=== PATIENT | male | born 1965 | race Two or more races ===

== ENCOUNTER 2023-07-22 17:08 | Inpatient (IN) | payer OTHER ==
[2023-07-22 20:10] VITALS: RESP 16; BMI 19.8
[2023-07-22] MEDS ORDERED: MAG HYDROX/AL HYDROX/SIMETH 30 ML UNIT-DOSE CUP PO PRN (23:24)
[2023-07-22] MEDS ORDERED: MAGNESIUM HYDROX 2400MG/30ML ORAL SUSPENSION 30 ML CUP PO PRN (23:24)
[2023-07-22] MEDS ORDERED: BENZOCAINE/MENTHOL (CHLORASEPTIC ) LOZENGE MM PRN (23:24)
[2023-07-22] MEDS ORDERED: NICOTINE POLACRILEX 2 MG GUM BUC PRN (23:24)
[2023-07-22] MEDS ORDERED: BENZONATATE 200 MG CAPSULE PO PRN (23:24)
[2023-07-22] MEDS ORDERED: NALOXONE HCL 0.4 MG/ML VIAL IM PRN (23:24)
[2023-07-22] MEDS ORDERED: LOPERAMIDE HCL 2 MG CAPSULE PO PRN (23:24)
[2023-07-22] MEDS ORDERED: hydrOXYzine PAMOATE 25 MG CAPSULE (FP) PO PRN (23:24)
[2023-07-22] MEDS ORDERED: POLYETHYLENE GLYCOL (HEALTHYLAX) 3350 17 GM PACKET PO PRN (23:24)
[2023-07-22] MEDS ORDERED: IBUPROFEN 600 MG TABLET (FP) PO PRN (23:24)
[2023-07-22] MEDS ORDERED: ACETAMINOPHEN 325 MG TABLET (FP) PO PRN (23:24)
[2023-07-22] MEDS ORDERED: IBUPROFEN 400 MG TABLET (FP) PO PRN (23:24)
[2023-07-22] MEDS ORDERED: NALOXONE HCL (KLOXXADO) 8 MG SPRAY NS PRN (23:24)
[2023-07-22] MEDS ORDERED: guaiFENesin 600 MG TABLET.ER (FP) PO PRN (23:24)
[2023-07-23] MEDS: MELATONIN 5 MG TABLETS PO SCH ×2 (00:05→21:17)
[2023-07-23] MEDS ORDERED: hydrOXYzine PAMOATE 25 MG CAPSULE (FP) PO ONE (01:39)
[2023-07-23] MEDS ORDERED: MELATONIN 5 MG TABLETS ONE (01:39)
[2023-07-23] MEDS ORDERED: methaDONE HCL 10 MG TABLET PO SCH (07:30)
[2023-07-23] MEDS: TAMSULOSIN HCL 0.4 MG CAP PO SCH (09:23)
[2023-07-23] MEDS: GABAPENTIN 400 MG CAPSULE PO SCH ×2 (09:24→21:17)
[2023-07-23] MEDS: levETIRAcetam 500 MG TABLET (FP) PO SCH ×2 (09:24→21:17)
[2023-07-23] MEDS: PRENATAL VITAMINS W/ FOLIC ACID TABLET (FP) PO SCH (09:24)
[2023-07-23] MEDS: NICOTINE 21 MG/24 HOURS TOPICAL PATCH TD SCH (09:25)
[2023-07-23 11:33] LABS: HEMATOCRIT 35.9 % (35.4-49); HEMOGLOBIN 12.2 GM/dL (11.7-16.9); MCH 31.4 pg (25.7-33.7); MCHC 33.9 g/dl (32.0-35.9); MEAN CELL VOLUME 92.8 fl (80-96); MEAN PLT VOLUME 8.1 fl (7.5-11.1); PLATELET COUNT 127 10^3/uL (134-434); RBC 3.87 M/mm3 (4.00-5.60); WHITE BLOOD COUNT 5.5 K/mm3 (4.0-10.0)
[2023-07-23 11:39] LABS: CHLORIDE 110 mmol/L (98-107); POTASSIUM 3.5 mmol/L (3.5-5.1); SODIUM 143 mmol/L (136-145)
[2023-07-23 11:42] LABS: ALBUMIN 2.8 g/dl (3.4-5.0); ANION GAP 2 mmol/L (4-13); BLOOD UREA NITROGEN 17.7 mg/dL (7-18); CALCIUM 8.8 mg/dL (8.5-10.1); CO2 31 mmol/L (21-32); GLUCOSE,RANDOM 96 mg/dL (74-106)
[2023-07-23 11:45] LABS: CREATININE 0.7 mg/dL (0.55-1.3)
[2023-07-23 11:46] LABS: SGOT/AST 67 U/L (15-37)
[2023-07-23 11:47] LABS: BILIRUBIN,TOTAL 0.2 mg/dL (0.2-1); TOT PROT 6.6 g/dl (6.4-8.2)
[2023-07-23 12:41] LABS: HIV INTERPRETATION NEGATIVE (NEGATIVE)
[2023-07-23 15:23] LABS: SGPT/ALT 118 U/L (13-61)
[2023-07-23 15:26] LABS: ALK PHOS 61 U/L (45-117)
[2023-07-23] MEDS: THIAMINE HCL 100 MG TABLET (FP) PO SCH (21:17)
[2023-07-24] MEDS ORDERED: LORazepam 4 MG/1 ML VIAL IM ONE (09:55)
[2023-07-24] MEDS ORDERED: LORazepam 2 MG/ML SDV VIAL IM ONE (09:59)
[2023-07-24] MEDS: GABAPENTIN 400 MG CAPSULE PO SCH ×2 (10:56→22:53)
[2023-07-24] MEDS: levETIRAcetam 500 MG TABLET (FP) PO SCH ×2 (10:56→22:53)
[2023-07-24] MEDS: NICOTINE 21 MG/24 HOURS TOPICAL PATCH TD SCH (10:56)
[2023-07-24] MEDS: TAMSULOSIN HCL 0.4 MG CAP PO SCH (10:56)
[2023-07-24] MEDS: PRENATAL VITAMINS W/ FOLIC ACID TABLET (FP) PO SCH (10:57)
[2023-07-24 14:27] VITALS: BP 109/68; PULSE 73; TEMP 98.3
[2023-07-24] MEDS: MELATONIN 5 MG TABLETS PO SCH (22:53)
[2023-07-24] MEDS: THIAMINE HCL 100 MG TABLET (FP) PO SCH (22:54)
== END 2023-07-24 23:25 | disposition short-term general hospital (02) | DRG 772 ==
LOC: YASAS 17:08 → Y3E 07-23 01:46
PROVIDERS: ADMIT Allergy & Immunology; ATTEND Psychiatry & Neurology Pain Medicine
PROC: HZ42ZZZ Group Counseling for Substance Abuse Treatment, Cognitive-Behavioral (ICD-10-PCS; principal; 2023-07-23)
DX: F11.20 Opioid dependence, uncomplicated (principal); F14.20 Cocaine dependence, uncomplicated; F16.20 Hallucinogen dependence, uncomplicated; F17.210 Nicotine dependence, cigarettes, uncomplicated; F20.9 Schizophrenia, unspecified; F32.A Depression, unspecified; F19.282 Other psychoactive substance dependence with psychoactive substance-induced sleep disorder; F19.24 Other psychoactive substance dependence with psychoactive substance-induced mood disorder; G40.909 Epilepsy, unspecified, not intractable, without status epilepticus; C64.9 Malignant neoplasm of unspecified kidney, except renal pelvis; N40.0 Benign prostatic hyperplasia without lower urinary tract symptoms; B18.2 Chronic viral hepatitis C; Z86.11 Personal history of tuberculosis; Z88.0 Allergy status to penicillin; Z88.2 Allergy status to sulfonamides; Z59.00 Homelessness unspecified
CPT/HCPCS: 36415; 71046-TC-FY; 80053; 80307; 82962; 85027; 86780; 87389; 87635; 87811; 93005; 93010

== ENCOUNTER 2023-07-24 10:38 | Inpatient (IN) | payer OTHER ==
[2023-07-24 12:45] LABS: BASO % 0.4 % (0-2.0); EOS % 4.2 % (0-4.5); HEMATOCRIT 36.2 % (35.4-49); HEMOGLOBIN 12.2 GM/dL (11.7-16.9); LYMPH % 26.2 % (8-40); MCH 31.3 pg (25.7-33.7); MCHC 33.7 g/dl (32.0-35.9); MEAN CELL VOLUME 92.9 fl (80-96); MEAN PLT VOLUME 7.4 fl (7.5-11.1); MONO % 11.5 % (3.8-10.2); NEUT % 57.7 % (42.8-82.8); PLATELET COUNT 134 10^3/uL (134-434); RDW 14.3 % (11.9-15.9); WHITE BLOOD COUNT 4.6 K/mm3 (4.0-10.0)
[2023-07-24 12:52] LABS: INR 1.1 (0.83-1.09); PROTHROMBIN TIME (PATIENT) 12.7 SEC (9.7-13.0)
[2023-07-24 12:55] LABS: ACTIVATED PTT 29.3 SECONDS (25.2-36.5)
[2023-07-24] MEDS ORDERED: levETIRAcetam 500 MG/5 ML INJECTION VIAL IVPB ONE (13:00)
[2023-07-24] MEDS: levETIRAcetam 500 MG/5 ML INJECTION VIAL IVPB ONE (13:08)
[2023-07-24 13:09] LABS: POTASSIUM 3.9 mmol/L (3.5-5.1)
[2023-07-24 13:12] LABS: ALBUMIN 2.9 g/dl (3.4-5.0); BLOOD UREA NITROGEN 15.5 mg/dL (7-18)
[2023-07-24 13:15] LABS: CREATININE 0.6 mg/dL (0.55-1.3)
[2023-07-24 13:17] LABS: BILIRUBIN,TOTAL 0.3 mg/dL (0.2-1); TOT PROT 6.9 g/dl (6.4-8.2)
[2023-07-24 14:40] LABS: PH,URINE 7.5 (5.0-8.0); URINE APPEARANCE CLEAR; URINE BILIRUBIN NEGATIVE (NEGATIVE); URINE COLOR YELLOW; URINE GLUCOSE (UA) NEGATIVE (NEGATIVE); URINE KETONE NEGATIVE (NEGATIVE); URINE LEUK ESTERASE NEGATIVE (NEGATIVE); URINE NITRITE NEGATIVE (NEGATIVE); URINE PROTEIN NEGATIVE (NEGATIVE); URINE UROBILINOGEN 0.2 mg/dL (0.2-1.0)
[2023-07-24 15:00] LABS: PHENCYCLIDINE,URINE NEGATIVE (NEGATIVE); URINE BENZODIAZEPINES NEGATIVE (NEGATIVE)
[2023-07-24 15:01] LABS: OPIATES, URI NEGATIVE (NEGATIVE); URINE BARBITURATES NEGATIVE (NEGATIVE)
[2023-07-24 15:15] LABS: COCAINE, UR POSITIVE (NEGATIVE); METHADONE, UR POSITIVE (NEGATIVE); URINE AMPHETAMINES NEGATIVE (NEGATIVE)
[2023-07-24] MEDS ORDERED: NICOTINE 21 MG/24 HOURS TOPICAL PATCH ONE (18:37)
[2023-07-24] MEDS: NICOTINE 21 MG/24 HOURS TOPICAL PATCH TD SCH (18:41)
[2023-07-24] MEDS ORDERED: hydrOXYzine PAMOATE 50 MG CAPSULE (FP) ONE (21:24)
[2023-07-24] MEDS ORDERED: levETIRAcetam 500 MG TABLET (FP) PO ONE (21:24)
[2023-07-24] MEDS ORDERED: clonazePAM 2 MG TABLET ONE (21:25)
[2023-07-24] MEDS ORDERED: GABAPENTIN 400 MG CAPSULE ONE (21:25)
[2023-07-24] MEDS: GABAPENTIN 400 MG CAPSULE PO SCH (21:29)
[2023-07-24] MEDS: levETIRAcetam 500 MG TABLET (FP) PO SCH (21:29)
[2023-07-24] MEDS: CLONAZEPAM PO SCH (21:29)
[2023-07-24] MEDS: hydrOXYzine PAMOATE 50 MG CAPSULE (FP) PO SCH (21:30)
[2023-07-25] MEDS ORDERED: methaDONE HCL 10 MG TABLET PO SCH (10:00)
[2023-07-25 10:05] LABS: BASO % 0.3 % (0-2.0); EOS % 2.5 % (0-4.5); HEMATOCRIT 38.9 % (35.4-49); LYMPH % 21.4 % (8-40); MCH 30.8 pg (25.7-33.7); MCHC 33.4 g/dl (32.0-35.9); MEAN CELL VOLUME 92.2 fl (80-96); MEAN PLT VOLUME 7.5 fl (7.5-11.1); MONO % 10.3 % (3.8-10.2); NEUT % 65.5 % (42.8-82.8); PLATELET COUNT 145 10^3/uL (134-434); RBC 4.22 M/mm3 (4.00-5.60); RDW 13.6 % (11.9-15.9); WHITE BLOOD COUNT 5.1 K/mm3 (4.0-10.0)
[2023-07-25 10:30] LABS: POTASSIUM 3.8 mmol/L (3.5-5.1)
[2023-07-25 10:41] LABS: BLOOD UREA NITROGEN 15.5 mg/dL (7-18)
[2023-07-25 10:42] LABS: PHOSPHOROUS 3.4 mg/dL (2.5-4.9)
[2023-07-25] MEDS ORDERED: levETIRAcetam 250 MG TABLET PO ONE (10:42)
[2023-07-25 10:43] LABS: CREATININE 0.6 mg/dL (0.55-1.3)
[2023-07-25 10:44] LABS: BILIRUBIN,TOTAL 0.4 mg/dL (0.2-1); TOT PROT 7.1 g/dl (6.4-8.2)
[2023-07-25] MEDS: clonazePAM 2 MG TABLET PO SCH (10:49)
[2023-07-25] MEDS: ENOXAPARIN NA (PORCINE) 40 MG/0.4 ML DISP.SYRIN SQ SCH (10:49)
[2023-07-25] MEDS ORDERED: hydrOXYzine PAMOATE 25 MG CAPSULE (FP) PO ONE (22:08)
[2023-07-25] MEDS: ONDANSETRON 4 MG/2 ML VIAL IVPUSH PRN (22:14)
[2023-07-25] MEDS: hydrOXYzine PAMOATE 25 MG CAPSULE (FP) PO SCH (22:44)
[2023-07-25] MEDS: CARBIDOPA/LEVODOPA 25/100 TABLET (FP) PO SCH (22:45)
[2023-07-26 09:42] LABS: BASO % 0.3 % (0-2.0); EOS % 1.8 % (0-4.5); HEMATOCRIT 42.6 % (35.4-49); HEMOGLOBIN 14.4 GM/dL (11.7-16.9); LYMPH % 22.9 % (8-40); MCH 31.5 pg (25.7-33.7); MCHC 33.9 g/dl (32.0-35.9); MEAN CELL VOLUME 92.9 fl (80-96); MEAN PLT VOLUME 7.6 fl (7.5-11.1); MONO % 8.5 % (3.8-10.2); NEUT % 66.5 % (42.8-82.8); PLATELET COUNT 186 10^3/uL (134-434); RBC 4.58 M/mm3 (4.00-5.60); WHITE BLOOD COUNT 5.8 K/mm3 (4.0-10.0)
[2023-07-26 10:01] LABS: ALBUMIN 3.2 g/dl (3.4-5.0); BLOOD UREA NITROGEN 15.9 mg/dL (7-18); CALCIUM 9.5 mg/dL (8.5-10.1); MAGNESIUM 2.2 mg/dL (1.8-2.4)
[2023-07-26 10:03] LABS: POTASSIUM 4.5 mmol/L (3.5-5.1)
[2023-07-26 10:04] LABS: CREATININE 0.7 mg/dL (0.55-1.3)
[2023-07-26 10:06] LABS: BILIRUBIN,TOTAL 0.4 mg/dL (0.2-1); TOT PROT 7.9 g/dl (6.4-8.2)
[2023-07-27 09:55] LABS: BASO % 0.3 % (0-2.0); EOS % 3.9 % (0-4.5); HEMOGLOBIN 14.2 GM/dL (11.7-16.9); LYMPH % 29.3 % (8-40); MCH 31.5 pg (25.7-33.7); MCHC 34.6 g/dl (32.0-35.9); MEAN CELL VOLUME 91.1 fl (80-96); MEAN PLT VOLUME 7.7 fl (7.5-11.1); MONO % 12.2 % (3.8-10.2); NEUT % 54.3 % (42.8-82.8); PLATELET COUNT 195 10^3/uL (134-434); RDW 13.8 % (11.9-15.9); WHITE BLOOD COUNT 5.1 K/mm3 (4.0-10.0)
[2023-07-27 09:58] LABS: POTASSIUM 4.4 mmol/L (3.5-5.1)
[2023-07-27 10:10] LABS: CALCIUM 9.1 mg/dL (8.5-10.1)
[2023-07-27 10:11] LABS: BLOOD UREA NITROGEN 20.1 mg/dL (7-18); MAGNESIUM 2.1 mg/dL (1.8-2.4)
[2023-07-27 10:14] LABS: CREATININE 0.8 mg/dL (0.55-1.3)
[2023-07-27 10:15] LABS: BILIRUBIN,TOTAL 0.4 mg/dL (0.2-1); TOT PROT 7.5 g/dl (6.4-8.2)
[2023-07-27] MEDS: SODIUM CHLORIDE 500 ML IV STA (12:55)
[2023-07-27] MEDS: SODIUM CHLORIDE 1,000 ML IV SCH (15:53)
[2023-07-27] MEDS: IBUPROFEN 400 MG TABLET (FP) PO ONE (20:19)
[2023-07-27] MEDS: GABAPENTIN 100 MG CAPSULE PO SCH (22:03)
[2023-07-27] MEDS: LORazepam 2 MG/ML SDV VIAL IVPUSH PRN (23:41)
[2023-07-28] MEDS ORDERED: VALPROATE SODIUM 500 MG/5 ML VIAL IVPB SCH (00:15)
[2023-07-28] MEDS: DIVALPROEX SODIUM 500 MG TABLET E.C. PO SCH (00:21)
[2023-07-28] MEDS: VALPROATE SODIUM INJECTION 250 MG in SODIUM CHLORIDE 100 ML IVPB SCH ×2 (00:34→14:18)
[2023-07-28 08:46] LABS: BASO % 0.4 % (0-2.0); EOS % 4.1 % (0-4.5); HEMATOCRIT 37.9 % (35.4-49); HEMOGLOBIN 13.1 GM/dL (11.7-16.9); LYMPH % 31.2 % (8-40); MCH 31.7 pg (25.7-33.7); MCHC 34.7 g/dl (32.0-35.9); MEAN CELL VOLUME 91.4 fl (80-96); MEAN PLT VOLUME 7.8 fl (7.5-11.1); MONO % 13.8 % (3.8-10.2); NEUT % 50.5 % (42.8-82.8); PLATELET COUNT 171 10^3/uL (134-434); RBC 4.14 M/mm3 (4.00-5.60); WHITE BLOOD COUNT 4.6 K/mm3 (4.0-10.0)
[2023-07-28 09:03] LABS: POTASSIUM 4.2 mmol/L (3.5-5.1)
[2023-07-28 09:08] LABS: CALCIUM 8.9 mg/dL (8.5-10.1)
[2023-07-28 09:09] LABS: ALBUMIN 2.8 g/dl (3.4-5.0); BLOOD UREA NITROGEN 19.9 mg/dL (7-18); MAGNESIUM 1.9 mg/dL (1.8-2.4)
[2023-07-28 09:12] LABS: CREATININE 0.8 mg/dL (0.55-1.3)
[2023-07-28 09:13] LABS: BILIRUBIN,TOTAL 0.3 mg/dL (0.2-1); TOT PROT 6.4 g/dl (6.4-8.2)
[2023-07-28] MEDS ORDERED: ONDANSETRON 4 MG/2 ML VIAL IVPUSH PRN (10:17)
[2023-07-28] MEDS: SODIUM CHLORIDE 1,000 ML IV SCH (14:16)
[2023-07-28] MEDS: CARBIDOPA/LEVODOPA 25/100 TABLET (FP) PO SCH (14:16)
[2023-07-28] MEDS: GABAPENTIN 100 MG CAPSULE PO SCH (21:42)
[2023-07-28] MEDS: hydrOXYzine PAMOATE 25 MG CAPSULE (FP) PO SCH (21:43)
[2023-07-28] MEDS: levETIRAcetam 500 MG TABLET (FP) PO SCH (21:44)
[2023-07-29] MEDS: ENOXAPARIN NA (PORCINE) 40 MG/0.4 ML DISP.SYRIN SQ SCH (10:11)
[2023-07-29] MEDS: NICOTINE 21 MG/24 HOURS TOPICAL PATCH TD SCH (10:12)
[2023-07-29] MEDS: ACETAMINOPHEN 1000 MG/100 ML BAG IVPB ONE (21:39)
[2023-07-31 09:09] LABS: BASO % 0.4 % (0-2.0); EOS % 5.5 % (0-4.5); HEMATOCRIT 42.3 % (35.4-49); HEMOGLOBIN 14.3 GM/dL (11.7-16.9); LYMPH % 28.5 % (8-40); MCH 31.3 pg (25.7-33.7); MCHC 33.8 g/dl (32.0-35.9); MEAN CELL VOLUME 92.7 fl (80-96); MONO % 14.7 % (3.8-10.2); NEUT % 50.9 % (42.8-82.8); PLATELET COUNT 195 10^3/uL (134-434); RBC 4.56 M/mm3 (4.00-5.60); WHITE BLOOD COUNT 5.9 K/mm3 (4.0-10.0)
[2023-07-31 09:19] LABS: POTASSIUM 4.5 mmol/L (3.5-5.1)
[2023-07-31 09:44] LABS: CALCIUM 9.6 mg/dL (8.5-10.1)
[2023-07-31 09:45] LABS: BLOOD UREA NITROGEN 20.5 mg/dL (7-18); MAGNESIUM 2.2 mg/dL (1.8-2.4)
[2023-07-31 09:48] LABS: CREATININE 0.8 mg/dL (0.55-1.3)
[2023-07-31 09:50] LABS: BILIRUBIN,TOTAL 0.6 mg/dL (0.2-1)
[2023-07-31 09:55] LABS: ALBUMIN 3.4 g/dl (3.4-5.0)
[2023-07-31] MEDS: MECLIZINE HCL 12.5 MG TABLET PO SCH (14:14)
[2023-07-31] MEDS: DIVALPROEX SODIUM 500 MG TABLET E.C. PO ONE (14:19)
[2023-07-31] MEDS: DIVALPROEX SODIUM 500 MG TABLET E.C. PO SCH (21:50)
[2023-08-01] MEDS: LORazepam 2 MG/ML SDV VIAL IVPUSH PRN (00:21)
[2023-08-01] MEDS ORDERED: VALPROATE SODIUM 500 MG/5 ML VIAL IVPB SCH ×2 (00:45→09:30)
[2023-08-01] MEDS: VALPROATE SODIUM INJECTION 500 MG in SODIUM CHLORIDE 100 ML IVPB ONE (03:10)
[2023-08-01 09:09] LABS: BASO % 0.4 % (0-2.0); EOS % 5.6 % (0-4.5); HEMATOCRIT 41.7 % (35.4-49); LYMPH % 30.6 % (8-40); MCHC 33.7 g/dl (32.0-35.9); MEAN CELL VOLUME 92.2 fl (80-96); MEAN PLT VOLUME 8.1 fl (7.5-11.1); MONO % 13.3 % (3.8-10.2); NEUT % 50.1 % (42.8-82.8); PLATELET COUNT 184 10^3/uL (134-434); RBC 4.52 M/mm3 (4.00-5.60); RDW 14.2 % (11.9-15.9); WHITE BLOOD COUNT 5.6 K/mm3 (4.0-10.0)
[2023-08-01 09:26] LABS: POTASSIUM 4.7 mmol/L (3.5-5.1)
[2023-08-01 09:32] LABS: ALBUMIN 3.1 g/dl (3.4-5.0); BLOOD UREA NITROGEN 25.4 mg/dL (7-18); CALCIUM 9.1 mg/dL (8.5-10.1); MAGNESIUM 1.9 mg/dL (1.8-2.4)
[2023-08-01 09:35] LABS: CREATININE 0.8 mg/dL (0.55-1.3)
[2023-08-01 09:36] LABS: BILIRUBIN,TOTAL 0.4 mg/dL (0.2-1); TOT PROT 7.6 g/dl (6.4-8.2)
[2023-08-01] MEDS: VALPROATE SODIUM INJECTION 375 MG in SODIUM CHLORIDE 100 ML IVPB SCH (10:12)
[2023-08-01] MEDS: VALPROATE SODIUM INJECTION 250 MG in SODIUM CHLORIDE 100 ML IVPB SCH (10:37)
[2023-08-01] MEDS: SODIUM CHLORIDE 1,000 ML IV STA (10:39)
[2023-08-01] MEDS: SODIUM CHLORIDE 500 ML IV STA (14:46)
[2023-08-01] MEDS ORDERED: LORazepam 2 MG/ML SDV VIAL IVPUSH PRN (16:31)
[2023-08-01] MEDS ORDERED: ONDANSETRON 4 MG/2 ML VIAL IVPUSH PRN (16:31)
[2023-08-01] MEDS: CARBIDOPA/LEVODOPA 25/100 TABLET (FP) PO SCH (21:25)
[2023-08-01] MEDS: levETIRAcetam 500 MG TABLET (FP) PO SCH (21:25)
[2023-08-01] MEDS: hydrOXYzine PAMOATE 25 MG CAPSULE (FP) PO SCH (21:25)
[2023-08-01] MEDS: GABAPENTIN 100 MG CAPSULE PO SCH (21:25)
[2023-08-02 07:03] LABS: BASO % 0.5 % (0-2.0); EOS % 5.5 % (0-4.5); HEMATOCRIT 39.5 % (35.4-49); HEMOGLOBIN 13.4 GM/dL (11.7-16.9); LYMPH % 34.2 % (8-40); MCH 31.2 pg (25.7-33.7); MCHC 33.9 g/dl (32.0-35.9); MEAN CELL VOLUME 92.2 fl (80-96); MEAN PLT VOLUME 8.1 fl (7.5-11.1); MONO % 13.6 % (3.8-10.2); NEUT % 46.2 % (42.8-82.8); PLATELET COUNT 167 10^3/uL (134-434); RBC 4.29 M/mm3 (4.00-5.60); RDW 13.9 % (11.9-15.9); WHITE BLOOD COUNT 4.5 K/mm3 (4.0-10.0)
[2023-08-02 07:26] LABS: POTASSIUM 4.2 mmol/L (3.5-5.1)
[2023-08-02 07:28] LABS: ALBUMIN 3.1 g/dl (3.4-5.0); BLOOD UREA NITROGEN 20.4 mg/dL (7-18); CALCIUM 9.2 mg/dL (8.5-10.1); MAGNESIUM 2.2 mg/dL (1.8-2.4)
[2023-08-02 07:31] LABS: CREATININE 0.7 mg/dL (0.55-1.3); PHOSPHOROUS 4.4 mg/dL (2.5-4.9)
[2023-08-02 07:32] LABS: BILIRUBIN,TOTAL 0.4 mg/dL (0.2-1); TOT PROT 7.2 g/dl (6.4-8.2)
[2023-08-02] MEDS: NICOTINE 21 MG/24 HOURS TOPICAL PATCH TD SCH (10:38)
[2023-08-02] MEDS: ENOXAPARIN NA (PORCINE) 40 MG/0.4 ML DISP.SYRIN SQ SCH (10:44)
[2023-08-02 17:22] LABS: COCAINE, UR NEGATIVE (NEGATIVE); OPIATES, URI NEGATIVE (NEGATIVE); PHENCYCLIDINE,URINE NEGATIVE (NEGATIVE); URINE BARBITURATES NEGATIVE (NEGATIVE); URINE BENZODIAZEPINES NEGATIVE (NEGATIVE)
[2023-08-02 17:23] LABS: URINE AMPHETAMINES NEGATIVE (NEGATIVE)
[2023-08-02 18:36] LABS: METHADONE, UR POSITIVE (NEGATIVE)
[2023-08-03] VITALS: BMI 20.6
[2023-08-03 06:27] LABS: BASO % 0.5 % (0-2.0); EOS % 5.3 % (0-4.5); HEMOGLOBIN 14.1 GM/dL (11.7-16.9); MCH 31.1 pg (25.7-33.7); MCHC 33.5 g/dl (32.0-35.9); MEAN CELL VOLUME 92.9 fl (80-96); MEAN PLT VOLUME 8.3 fl (7.5-11.1); MONO % 15.5 % (3.8-10.2); NEUT % 44.7 % (42.8-82.8); PLATELET COUNT 163 10^3/uL (134-434); RBC 4.52 M/mm3 (4.00-5.60); RDW 14.1 % (11.9-15.9); WHITE BLOOD COUNT 4.9 K/mm3 (4.0-10.0)
[2023-08-03 06:47] LABS: POTASSIUM 4.3 mmol/L (3.5-5.1)
[2023-08-03 06:55] LABS: CALCIUM 9.6 mg/dL (8.5-10.1)
[2023-08-03 06:57] LABS: ALBUMIN 3.1 g/dl (3.4-5.0); BILIRUBIN,TOTAL 0.4 mg/dL (0.2-1); BLOOD UREA NITROGEN 20.3 mg/dL (7-18); MAGNESIUM 1.8 mg/dL (1.8-2.4)
[2023-08-03 06:59] LABS: TOT PROT 7.5 g/dl (6.4-8.2)
[2023-08-03 07:00] LABS: CREATININE 0.9 mg/dL (0.55-1.3); PHOSPHOROUS 4.6 mg/dL (2.5-4.9)
[2023-08-03] MEDS ORDERED: ONDANSETRON 4 MG/2 ML VIAL IVPUSH PRN (12:20)
[2023-08-03] MEDS ORDERED: LORazepam 2 MG/ML SDV VIAL IVPUSH PRN (12:20)
[2023-08-03] MEDS: MECLIZINE HCL 12.5 MG TABLET PO SCH (13:10)
[2023-08-03] MEDS: CARBIDOPA/LEVODOPA 25/100 TABLET (FP) PO SCH (13:10)
[2023-08-03] MEDS: VALPROATE SODIUM INJECTION 375 MG in SODIUM CHLORIDE 100 ML IVPB SCH (15:50)
[2023-08-03] MEDS: ACETAMINOPHEN 325 MG TABLET (FP) PO ONE (17:07)
[2023-08-03 18:45] VITALS: BP 111/73; PULSE 82; RESP 18; TEMP 98.1
[2023-08-03] MEDS ORDERED: levETIRAcetam 500 MG TABLET (FP) PO SCH (22:00)
[2023-08-03] MEDS ORDERED: GABAPENTIN 100 MG CAPSULE PO SCH (22:00)
[2023-08-03] MEDS ORDERED: hydrOXYzine PAMOATE 25 MG CAPSULE (FP) PO SCH (22:00)
[2023-08-04] MEDS ORDERED: NICOTINE 21 MG/24 HOURS TOPICAL PATCH TD SCH (10:00)
[2023-08-04] MEDS ORDERED: ENOXAPARIN NA (PORCINE) 40 MG/0.4 ML DISP.SYRIN SQ SCH (10:00)
== END 2023-08-03 19:35 | disposition left against medical advice (07) | DRG 53 ==
LOC: JER 10:38 → JERBED 16:04 → J8W 22:49 → JERBED 07-28 02:51 → J4S 07-28 02:53 → JICU 08-01 13:17 → J4W 08-03 12:10
PROVIDERS: ADMIT Internal Medicine; ATTEND Internal Medicine
DX: R56.9 Unspecified convulsions (principal); F11.20 Opioid dependence, uncomplicated; F20.9 Schizophrenia, unspecified; F41.8 Other specified anxiety disorders; I47.29 Other ventricular tachycardia; F43.10 Post-traumatic stress disorder, unspecified; G20.A1 Parkinson's disease without dyskinesia, without mention of fluctuations; R42 Dizziness and giddiness; F19.10 Other psychoactive substance abuse, uncomplicated; L97.529 Non-pressure chronic ulcer of other part of left foot with unspecified severity; L97.519 Non-pressure chronic ulcer of other part of right foot with unspecified severity; S93.102A Unspecified subluxation of left toe(s), initial encounter; X58.XXXA Exposure to other specified factors, initial encounter; Y93.9 Activity, unspecified; Y92.9 Unspecified place or not applicable; Y99.9 Unspecified external cause status; Z85.53 Personal history of malignant neoplasm of renal pelvis; Z91.148 Patient's other noncompliance with medication regimen for other reason; Z86.19 Personal history of other infectious and parasitic diseases; Z89.421 Acquired absence of other right toe(s); Z87.820 Personal history of traumatic brain injury
CPT/HCPCS: 36415; 70450-TC; 71045-TC-FY; 73630-TC-LT; 80053; 80164; 80177; 80307; 81003; 82962; 83605; 83735; 84100; 84484; 85025; 85610; 85730; 87635; 93005; 93010; 93306-TC; 93880-TC; 93926-TC; 97116-GP; 97161-GP; 99285-25; J0131